=== PATIENT | female | born 1955 | race Caucasian/White ===

== ENCOUNTER 2017-10-11 11:34 | Day surgery (SDC) | payer SELFPAY ==
[~2017-10-11 11:34] MED LIST: NS 0.9% VIAL 10 ML ONE; TRYPAN BLUE 0.5 ML SYR OPTH ONE
[2017-10-11] MEDS ORDERED: PHENYLEPHRINE 10% OPTH 5ML OPTH ONE ×2 (12:00→12:05)
[2017-10-11] MEDS ORDERED: CYCLOPENTOLATE 1% OPTH 2 ML OPTH ONE ×2 (12:00→12:05)
[2017-10-11] MEDS ORDERED: CYCLOPENTOLATE 1% OPTH 2 ML ONE (12:01)
[2017-10-11] MEDS ORDERED: LIDOCAINE 2% MPF 5 ML VIAL ONE (12:01)
[2017-10-11] MEDS ORDERED: BUPIVACAINE 0.25% PF 10 ML VIAL ONE (12:01)
[2017-10-11] MEDS ORDERED: NA CHLORIDE 0.9% 500 ML ONE (12:01)
[2017-10-11] MEDS ORDERED: TETRACAINE HCL 0.5% 2ML OPTH ONE (12:01)
[2017-10-11] MEDS ORDERED: PHENYLEPHRINE 10% OPTH 5ML ONE (12:02)
[2017-10-11] MEDS ORDERED: PROPOFOL 200 MG/20 ML VIAL IV ONE (13:13)
[2017-10-11] MEDS: BALANCED SALT IRRIG PLAIN 500 ML BTL IRR ONE ×2 (13:16→13:21)
[2017-10-11] MEDS: EPINEPHRINE/PF 1 MG/ML AMP ONE ×2 (13:16→13:21)
[2017-10-11] MEDS: DUOVISC 1 KIT OPTH ONE ×2 (13:17→13:21)
[2017-10-11] MEDS: MOXIFLOXACIN HCL 10 DROPS/ML **OR USE OPTH ONE ×2 (13:18→13:21)
[2017-10-11] MEDS ORDERED: DIPHENHYDRAMINE 50 MG/ML VIAL ONE (13:51)
--- NOTE | 2017-10-11 14:02 | P.BOP ---
Preoperative diagnosis: Mature cataract OS Postoperative diagnosis: Same Primary procedure: Phacoemulsification with IOL OS - complex with use of trypan blue Estimated blood loss: None Anesthesia: Local (Subtenon's infusion with anesthesia for cataract surgery) Complications: None Implants: ZCB00 +16.0 Transferred to: Other (Day surgery) Condition: Good
--- NOTE | 2017-10-11 23:53 | OP ---
Date of Procedure: 10/11/2017 Surgeon: Page Crawford MD Anesthesiologist: 1. Fannie Gibson CRNA. 2. Mars Marx M.D. Preoperative Diagnosis: Mature cataract OS (left eye). Operation Performed: Phacoemulsification with intraocular lens implant left eye complex with use of trypan blue. Anesthesia: Per cataract surgery. Complications: None. Description Of The Procedure: The patient was prepped with Betadine in day surgery. A drape was placed over the left eye. A lid speculum was placed in the left eye. A conjunctival incision was made in the inferior nasal quadrant with Joceline scissors. A 1:1 mixture of 2% Xylocaine and 0.25% bupivacaine was placed around the globe. Approximately 5 mL were used. A Honan balloon was placed on the eye for approximately 5 minutes. The patient was then transferred to the operative room where they were prepped and draped in the usual sterile fashion for ophthalmic surgery. A lid speculum was placed in the left eye. There was poor red reflex and a decision was made to use trypan blue. Paracentesis sites were made superiorly and inferiorly in the limbal cornea. Trypan blue was placed in the anterior chamber. After thirty seconds, balanced salt solution was used to rinse out the trypan blue from the eye. Viscoat was placed in the eye. The temporal conjunctiva was cut at the limbus with Joceline scissors. A crescent blade was used to create a tunnel incision in the temporal cornea. A keratome was used to enter the anterior chamber. Provisc was placed in the eye. A 360 degree capsulotomy was performed with a cystitome. The lens was hydrated with balanced salt solution and moved freely. The lens was removed in a stop and chop fashion. A 24.21 CDE was required. Irrigation and aspiration were used to remove residual cortex. Provisc was placed in the eye and a ZCB00 +16.0 diopter lens was placed in the capsular bag without complications. Irrigation and aspiration were used to remove residual Viscoat. The paracentesis sites were hydrated with balanced salt solution. The wound and paracentesis sites were inspected and found to be watertight. Intracameral Vigamox 0.07 cc was injected at the end of the procedure. The eye was irrigated with balanced salt solution. The eye was patched with a soft cotton patch and Varner metal shield and the patient was returned to day surgery in good condition. Discharge Instructions: Ms. Galaviz is discharged to home in good condition and is to follow up with Dr. Crawford in the morning. PRATIBHA/MATILDE Voice ID: [id number] Report ID: [id number] MTDD
== END 2017-10-11 14:36 | disposition home or self-care (01) ==
LOC: OR 11:34
PROVIDERS: ATTEND Ophthalmology Retina Specialist
PROC: 08RK3JZ Replacement of Left Lens with Synthetic Substitute, Percutaneous Approach (ICD-10-PCS; principal; 2017-10-11 12:15)
DX: H25.12 Age-related nuclear cataract, left eye (principal); H25.89 Other age-related cataract; I10 Essential (primary) hypertension; F17.200 Nicotine dependence, unspecified, uncomplicated; Z83.518 Family history of other specified eye disorder
CPT/HCPCS: J0171

== ENCOUNTER 2017-11-15 08:04 | Day surgery (SDC) | payer SELFPAY ==
[2017-11-15] MEDS ORDERED: CYCLOPENTOLATE 1% OPTH 2 ML ONE (08:07)
[2017-11-15] MEDS ORDERED: PHENYLEPHRINE 10% OPTH 5ML ONE (08:07)
[2017-11-15] MEDS ORDERED: NA CHLORIDE 0.9% 500 ML ONE (08:07)
[2017-11-15] MEDS ORDERED: PHENYLEPHRINE 10% OPTH 5ML OPTH ONE ×2 (08:23→08:28)
[2017-11-15] MEDS ORDERED: CYCLOPENTOLATE 1% OPTH 2 ML OPTH ONE ×2 (08:23→08:28)
[2017-11-15] MEDS ORDERED: NS 0.9% VIAL 10 ML ONE (09:07)
[2017-11-15] MEDS ORDERED: TRYPAN BLUE 0.5 ML SYR OPTH ONE (09:08)
[2017-11-15] MEDS ORDERED: MOXIFLOXACIN HCL 10 DROPS/ML **OR USE OPTH ONE (09:08)
[2017-11-15] MEDS ORDERED: BALANCED SALT IRRIG PLAIN 500 ML BTL IRR ONE (09:08)
[2017-11-15] MEDS ORDERED: EPINEPHRINE/PF 1 MG/ML AMP ONE (09:08)
[2017-11-15] MEDS ORDERED: DUOVISC 1 KIT OPTH ONE (09:08)
[2017-11-15] MEDS: BUPIVACAINE 0.25% PF 10 ML VIAL ONE ×2 (09:24→10:00)
[2017-11-15] MEDS: TETRACAINE HCL 0.5% 2ML OPTH ONE ×2 (09:24→10:00)
[2017-11-15] MEDS: LIDOCAINE 2% MPF 5 ML VIAL ONE ×2 (09:25→10:00)
[2017-11-15] MEDS ORDERED: PROPOFOL 200 MG/20 ML VIAL IV ONE (09:31)
[2017-11-15] MEDS ORDERED: LIDOCAINE 2% MPF 5 ML VIAL ONE (09:31)
--- NOTE | 2017-11-15 10:50 | P.BOP ---
Preoperative diagnosis: Nuclear sclerotic, cortical and posterior sub-capsular cataract OD Postoperative diagnosis: Same Primary procedure: Phacoemulsification with IOL OD Estimated blood loss: None Anesthesia: Local (Subtenon's infusion with anesthesia for cataract surgery) Complications: None Implants: ZCB00 +17.0 Transferred to: Other (Day surgery) Condition: Good
--- NOTE | 2017-11-15 20:58 | OP ---
Date of Procedure: 11/15/2017 Surgeon: Page Crawford MD Anesthesiologist: 1. Ja Weber CRNA. 2. Kofi Short MD. Preoperative Diagnosis: Nuclear sclerotic cataract, cortical cataract, and posterior subcapsular cat aract, OD (right eye). Operation Performed: Phacoemulsification with intraocular lens implant, OD (right eye). Anesthesia: Per cataract surgery. Complications: None. Description Of Procedure: In day surgery, the patient was prepped with Betadine and draped. A conju nctival incision was made in the inferior nasal quadrant with Joceline scissors. A sub-Tenon block c onsisting of a 1:1 mixture of 2% Xylocaine and 0.25% bupivacaine was placed through the conjunctival incision with a blunt cannula. A Honan balloon was placed over the eye and the patient was transferr ed to the operating room. In the operating room the patient was prepped and draped in the usual sterile fashion for ophthalmic surgery. A lid speculum was placed in the right eye. Two paracentesis sites were made superiorly an d inferiorly in the limbal cornea. Viscoat was placed in the anterior chamber and a crescent blade w as used to make a corneal groove and tunnel, and a keratome was used to enter the anterior chamber. Provisc was placed in the anterior chamber and a 360 degree capsulotomy was performed with a cystitom e. The lens was hydrodissected with BSS and rotated freely. The lens was removed with a stop and ch op technique. A 27.42 phaco CDE was used to remove the lens. Residual cortex was removed with the i rrigation and aspiration. Provisc was placed in the capsular bag. A ZCB00 +17.[address] aced in the capsular bag without complications. Irrigation and aspiration were used to remove residu al viscoelastic. The paracentesis sites were hydrated with BSS. The wound and paracentesis sites we re inspected and found to be watertight. Vigamox 0.07 cc was placed intracamerally at the end of the procedure. The eye was irrigated with balanced salt solution. The eye was patched with a soft cott on patch and Varner metal shield. The patient was returned to day surgery in good condition. Discharge Instructions: Ms. Galaviz is discharged to home in good condition and is to follow up with Dr. Crawford in the morning. PRATIBHA/MATILDE Voice ID: [id number] Report ID: [id number]
== END 2017-11-15 11:22 | disposition home or self-care (01) ==
LOC: OR 08:04
PROVIDERS: ATTEND Ophthalmology Retina Specialist
PROC: 08RJ3JZ Replacement of Right Lens with Synthetic Substitute, Percutaneous Approach (ICD-10-PCS; principal; 2017-11-15 09:50)
DX: H25.11 Age-related nuclear cataract, right eye (principal); H25.041 Posterior subcapsular polar age-related cataract, right eye; H25.011 Cortical age-related cataract, right eye; I10 Essential (primary) hypertension; F17.200 Nicotine dependence, unspecified, uncomplicated; Z83.518 Family history of other specified eye disorder
CPT/HCPCS: J0171

== ENCOUNTER 2023-06-06 18:58 | Emergency (ER) | payer OTHER ==
--- OUTSIDE RECORDS SUMMARY | 2023-06-06 19:03 | XMS REPORT | Continuity of Care Document ---
:1955 Author Organization [facility] t Address [address] [facility] [address] [place] [address] Care Team Providers Name Role Phone Ricardo Martin DO Primary Care Physician Doctor Unassigned, [place] Attending Clinician Unavailable Ashley ALTMAN, Jo Benítez Attending Clinician Unavailable Leonid Hernandez MD Attending Clinician Hue Stout MD Attending Clinician HUE STOUT Attending Clinician Unavailable Girish BOLANOS, Hue Admitting Clinician HUE STOUT Admitting Clinician Unavailable Payers Payer Name Policy Type Policy Number Effective Date Expiration Date S ource Problems Condition Condition Condition Status Onset Resolution Last Treating Co mments Source Name Details Category Date Date Treatment Clinician Date Hypotensio Hypotensio Disease Active U nivers n, n, 8-14 ity of [place] Medical hypotensio hypotensio Br anch n type n type Allergies, Adverse Reactions, Alerts Allergy Allergy Status Severity Reaction(s) Onset Inactive Treating Comm ents Source Name Type Date Date Clinician NO KNOWN Drug Active Univers ALLERGIE Class ity of S [facility] Social History Social Habit Start Date Stop Date Quantity Comments Source History of tobacco Cigarette Smoker [facility] Exposure to 2022-02-19 2022-03-01 Not sure [facility] SARS-CoV-2 (event) 00:00:00 15:10:00 [facility] Cigarettes smoked 2022-03-01 2022-03-01 [facility] ity of current (pack per 00:00:00 00:00:00 [place] ) - Reported Branch Cigarette 2022-03-01 2022-03-01 University of pack-years 00:00:00 00:00:00 [facility] Tobacco use and 2022-03-01 2022-03-01 Smokeless Universit y of exposure 00:00:00 00:00:00 tobacco non-user [facility] intake 2022-03-01 2022-03-01 Ex-drinker [facility] 00:00:00 00:00:00 (finding) [facility] Sex Ass[birth year] [facility] y of 00:00:00 00:00:00 [facility] Smoking Status Start Date Stop Date Source Smokes tobacco daily 2022-03-01 00:00:00 Univers ity of [facility] Medications Ordered Filled Start Stop Current Ordering Indication Dosage Frequency Signature Comments Components Source Medication Medication Date Date Medication? Clinician (SIG) Name Name cholecalcif 2021- No [id number] 1000U Take 1 Univers [place], 03-04 tablet by ity of vitamin D3, 00:00: 04:59 mouth in [place] 25 mcg 00 :00 the Medical (1,000 morning Branch unit) for 10 tablet days. zinc 2021- No [id number] 50mg Take 1 Unive rs sulfate 50 03-04 capsule by it y of mg zinc 00:00: 04:59 mouth in [place] (220 mg) 00 :00 the Medical capsule morning [place] for 10 days. cholecalcif 2021- No [id number] 1000U Take 1 Univers vianney, 03-04 tablet by ity of vitamin D3, 00:00: 04:59 mouth [place] 25 mcg 00 :00 the Medical (1,000 morning Branch unit) for 10 tablet days. zinc 2021- No [id number] 50mg Take 1 Unive rs sulfate 50 03-04 capsule by it y of mg zinc 00:00: 04:59 mouth in [place] (220 mg) 00 :00 the Medical capsule morning Branch for 10 days. lisinopriL 2021- No 10mg Take 10 mg Univers 10 mg 03-03 by mouth ity of tablet 10:25: 00:00 in the [place] 17 :00 morning. Medical Branch acetaminoph 2022- No [id number] 650mg Take 2 Univers en 325 mg 03-03-17 tablets by ity of tablet 00:00: 04:59 mouth [place] 00 :00 every 6 Medical (six) Branch hours as needed for Pain (scale 1-3) or Temp > 38.5 C. acetaminoph 2022- No [id number] 650mg Take 2 Univers en 325 mg 03-0317 tablets by ity of tablet 00:00: 04:59 mouth [place] 00 :00 every 6 Medical (six) Branch hours as needed for Pain (scale 1-3) or Temp > 38.5 C. acetaminoph 2022- No [id number] 650mg Take 2 Univers en 325 mg 03-03 tablets by ity of tablet 00:00: 04:59 mouth [place] 00 :00 every 6 Medical (six) Branch hours as needed for Pain (scale 1-3) or Temp > 38.5 C. ascorbic 2021- No [id number] 500mg Take 1 Univers acid, 03-03 tablet by ity of vitamin C, 00:00: 04:59 [place] 500 mg 00 :00 the Medical tablet morning Branch and 1 tablet in the evening. Do all this for 10 days. ascorbic 2021- No [id number] 500mg Take 1 Univers acid, 03-03 tablet by ity of vitamin C, 00:00: 04:59 mouth [place] 500 mg 00 :00 the Medical tablet morning Branch and 1 tablet in the evening. Do all this for 10 days. magnesium 2021- No 2g 2 g, IV Univ ers sulfate in 03-02 Piggyback, it y of water 2 14:15: 15:31 Administer [place] as gram/50 mL 00 :06 over 60 Medica l (4 %) Minutes, Branch infusion 2 ONCE, 1 g dose, On Wed03/02/22 at 0915, Routine cholecalcif 2021-0 Yes 1000U 1,000 [facility] ers vianney 8-15 Units, ity of (vitamin 14:00: Oral, [place] D3) tablet 00 DAILY, Medical 1,000 Units First dose Br anch on Wed03/02/22 at 0900, Until Discontinu ed, Routine zinc 2021-0 Yes 50mg 50 mg, Univers sulfate 8-15 Oral, ity of (ORAZINC) 14:00: DAILY, [place] capsule 50 00 First dose Med ical mg on Wed Branch 03/02/22 at 0900, Until Discontinu ed, Routine NaCl 0.45% 2021-0 2021- No 1000mL at 75 Uni vers (1/2NS) IV 03-02-16 mL/hr, ity of infusion 12:45: 14:10 1,000 mL, Tom [place] 1,000 mL 00 :09 IV Medical Infusion, Branch CONTINUOUS , Starting on Wed03/02/22 at 0745, Until Wed03/03/22 at 0910, Routine NaCl 0.9% 0 2021- No 500mL at 999 [facility] ers (NS) bolus 03-02-15 mL/hr, 500 it y of infusion 05:30: 04:43 mL, IV [place] 500 mL 00 :00 Piggyback, Medical ONCE, 1 Branch dose, On Wed03/02/22 at 0030, STAT heparin 2021-0 Yes 5000U 5,000 Univers (porcine) 8-15 Units, ity of injection 03:00: [place] 5,000 Units 00 us, Q8H, Medi martina First dose Branch on 03/01/22 at 2200, Until Discontinu ed, Routine ascorbic 2021-0 Yes 500mg 500 mg, Unive rs acid 8-15 Oral, BID, ity of (vitamin C) 01:00: First dose [place] (VITAMIN C) 00 on Sun Medica l tablet 500 03/01/22 at [facility] mg 2000, Until Discontinu ed, Routine cefTRIAXone 2021-0 2021- No 1000mg 1,000 mg, Univers (ROCEPHIN) 03-02-16 IV ity of 1,000 mg in 00:45: 16:11 Piggyback, [place] NaCl 0.9% 00 :05 Q24H ABX, Medic al (NS) 50 mL 7 doses, Branc h MINI-BAG First dose on [place] 03/01/22 at 1945, Last dose on [facility] 03/07/22 at 1945, Administer over 30 Minutes, 50 mL
Reas on for Anti-Infec tive: Documented Infection< br>Documen eliane Infection Site: Urine
D uration of Therapy: 7 days sodium 2021- No 150meq IV Univers bicarbonate 03-02 Infusion, it y of 150 mEq in 00:45: 11:41 at 100 [place] D5W 1,000 00 :32 mL/hr, 150 Medi martina mL IV mEq, Branch infusion CONTINUOUS , Starting on [place] 03/01/22 at 1945, Until 03/02/22 at 0641, Routine sodium No 100meq 100 mEq, Univ ers bicarbonate 03-02 Slow IV ity of 8.4 % (1 00:30: 01:16 Push, [place] mEq/mL) 00 :00 ONCE, 1 Medical injection dose, On Branch 100 mEq [place] 03/01/22 at 1930, JANET ondansetron Yes 4mg 4 mg, Slow Univers (ZOFRAN 03-01 IV Push, ity of (PF)) 23:40: Q6HPRNEast [place], [place] injection 4 59 Starting Medi martina mg on [facility] 03/01/22 at 1840, Until Discontinu ed, Routine, Nausea and Vomiting (N/V) acetaminoph Yes 650mg 650 mg, Un sierra en 03-01 Oral, ity of (TYLENOL) 23:40: Q6HPRN, [place] tablet 650 45 Starting Medic al mg on [place] Branch 03/01/22 at 1840, Until Discontinu ed, Routine, Pain (scale 1-3), Temp > 38.5 C NaCl 0.9% 2021- No 1000mL at 999 Uni vers (NS) bolus 03-01 08-14 mL/hr, ity of infusion 22:15: 22:29 1,000 mL, [place] 1,000 mL 00 :00 IV Medical Infusion, Branch ONCE, 1 dose, On [place] 03/01/22 at 1715, STAT NaCl 0.9% 1000mL at 999 Uni vers (NS) IV 03-01 08-14 mL/hr, IV ity of infusion 20:27: 21:11 Infusion, [place] 1,000 mL 00 :00 ONCE, 1 Medical dose, On Branch 03/01/22 at 1530, Routine Vital Signs Vital Name Observation Time Observation Value Comments Source Systolic blood 2022-03-03 13:00:00 130 mm[Hg] Univer sity of pressure [facility] Diastolic blood 2022-03-03 13:00:00 73 mm[Hg] Unive rsity of [facility] Heart rate 2022-03-03 13:00:00 61 /min [facility] Body temperature 2022-03-03 13:00:00 36.44 Annabel [facility] rate 2022-03-03 13:00:00 26 /min [facility] Oxygen saturation in 2022-03-03 13:00:00 93 /min [facility] Arterial blood by [place] [facility] Pulse oximetry [place] Body weight 2022-03-03 08:55:00 68.493 kg [facility] BMI 2022-03-03 08:55:00 25.91 kg/m2 [facility] Body height 2022-03-02 03:11:00 162.6 cm [facility] Procedures Procedure Date / Time Performing Clinician Source Performed AUTHORIZATION FOR RELEASE 2022-04-08 05:01:00 Doctor Unassigned, [facility] [place] Medical [facility] MAGNESIUM 2022-03-03 10:44:00 shakira [facility]ly [facility] BASIC METABOLIC PANEL (NA, 2022-03-03 10:44:00 Hue Stout [facility] K, CL, CO2, GLUCOSE, BUN, Medica l Branch CREATININE, CA) MRSA / MSSA SCREEN BY PCR, 2022-03-02 14:05:00 Hue Stout [facility] NARES [facility] US RETROPERITONEAL 2022-03-02 13:53:57 [facility] Branch MAGNESIUM 2022-03-02 09:22:00 [place], Hue [facility] BASIC METABOLIC PANEL (NA, 2022-03-02 09:22:00 Hue Stout [facility] K, CL, CO2, GLUCOSE, BUN, Medica l Branch CREATININE, CA) CBC WITH DIFF 2022-03-02 09:22:00 Hue Stout [facility] ACUTE CARE VENOUS BLOOD 2022-03-02 09:21:00 Ilia Bowers [facility] CRITICAL CARE 2022-03-01 23:48:55 Leonid Hernandez [facility] URINALYSIS 2022-03-01 23:13:00 Leonid Hernandez [facility] URINE CULTURE 2022-03-01 23:13:00 Leonid Hernandez [facility] URINE DRUG (IMMUNOASSAY) - 2022-03-01 23:13:00 Leonid Hernandez [facility] COMPREHENS[facility]EN [facility] W[facility] REFLEX BASIC METABOLIC PANEL (NA, 2022-03-01 22:33:00 Leonid Hernandez [facility] K, CL, CO2, GLUCOSE, BUN, Medica l Branch CREATININE, CA) ACUTE CARE VENOUS BLOOD 2022-03-01 22:29:00 Leonid Hernandez [facility] CT ABDOMEN PELVIS WO 2022-03-01 22:05:00 Leonid Hernandez [facility] HB ECG ROUTINE & RHYTHM 2022-03-01 20:44:38 Leonid Hernandez [facility] AC PANEL 21 + LACTIC ACID 2022-03-01 20:23:00 [facility] 2022-03-01 20:22:00 Leonid Hernandez [facility] LIPASE 2022-03-01 20:22:00 Leonid Hernandez [facility] TROPONIN I 2022-03-01 20:22:00 Leonid Hernandez [facility] COMP. METABOLIC PANEL 2022-03-01 20:22:00 Leonid Hernandez [facility] ([id number]) Medical [place] CBC WITH DIFF 2022-03-01 20:22:00 Leonid Hernandez [facility] [place] [facility] PROTHROMBIN TIME / INR 2022-03-01 20:22:00 Leonid Hernandez [facility] ACTIVATED PARTIAL THRMPLAS 2022-03-01 20:22:00 [facility] 2022-03-01 20:22:00 [facility] COVID-19 (ID NOW RAPID 2022-03-01 20:22:00 Leonid Hernandez [facility] TESTING) Medical Branch LAB ONLY COVID 2022-03-01 20:22:00 Leonid Hernandez [place] o f [place] INTERPRETATION [facility] NOTICE OF PRIVACY 2022-03-01 19:55:51 Doctor Eran, [facility] PRACTICES [place] Medical [facility] CONSENT/REFUSAL FOR 2022-03-01 19:54:51 Doctor Eran, [facility] DIAGNOSIS AND TREATMENT [place] Medical [place] Encounters Start End Encounter Admission Attending Care Care Encounter Source Date/Time Date/Time Type Type Clinicians Facility Department ID 2022-04-08 2022-04-08 Orders Doctor HANY [id number] Univers 00:00:00 00:00:00 Only Unassigned, TIMOTHY 350.1.13.10 ity of [place] [facility] 4.2.7.2.686 Tom as [id number] [facility] 009 Branch 2022-03-04 2022-03-04 Transition [place] quachJuan Carlos [id number] Univers 00:00:00 00:00:00 of Care Jo MUHAMMAD 350.1.13.10 i ty of [place]2.[place] [id number] [facility] 403 Branch 2022-03-01 2022-03-03 Hospital Leonid Hernandez [facility] [id number] Univers 15:14:00 12:00:00 Encounter Hue Stout 350.1.13.10 ity of [place]2.686 [place] C[place] [id number] [facility] 080 Branch 2022-03-01 2022-03-03 Inpatient X [facility] [id number] Univers 15:14:00 12:00:00 HUE alcazar [facility] Results Test Description Test Time Test Comments Results Result Comments Source BASIC METABOLIC PANEL (NA, K, CL, CO2, GLUCOSE, BUN, 2022-02 10:44:40 CREATININE, CA) Test Item Value Reference Range Interpretation Comme nts NA (test code = 3146990768) 141 mmol/L 135-145 K (test code = 9456182033) 4.2 mmol/L 3.5-5 CL (test code = 8916249864) 107 mmol/L 98-108 CO2 TOTAL (test code = 0919463079) 29 mmol/L 23-31 AGAP (test code = 1658136358) 2-16 BUN (test code = 2083652723) 38 mg/dL 7-23 H GLUCOSE (test code = 5302417376) 93 mg/dL 70-110 CREATININE (test code = 1.02 mg/dL 0.5-1.04 7263400119) CALCIUM (test code = 9687843542) 7.8 mg/dL 8.6-10.6 L eGFR (test code = 6499248292) mL/min/1.73m2 SIMRAN (test code = SIMRAN) Association of Glomerular Filtration Rate (GFR) and Staging of Kidney Disease* + +-------- + ------+| GFR (mL/min/1.73 m2) ?| With Kidney Damage ?| ?Without Kidney Damage+ +-- + +| ?>90 ?| ?Stage one ?| ? Normal ?+ +------- + -------+| ?60-89 ?| ?Stage two ?| ? Decreased GFR ? + +-------- + ------+| ?30-59 ?| ?Stage three ?| ? Stage three ? + +-------- + ------+| ?15-29 ?| ?Stage four ? | ? Stage four ?+ +------- + -------+| ?<15 (or dialysis) ? ?| ?Stage five ? | ? Stage five ?+ +------- + -------+ *Each stage assumes the associated GFR level has been in effect for at least three months. ?Stages 1 to 5, with or without kidney disease, indicate chronic kidney disease. Notes: Determination of stages one and two (with eGFR >59mL/min/1.73 m2) requires estimation of kidney damage for at least three months as defined by structural or functional abnormalities of the kidney, manifested by either:Pathological abnormalities or Markers of kidney damage (including abnormalities in the composition of the blood or urine or abnormalities in imaging tests). Lab Interpretation (test code = Abnormal 83199-3) [facility] [place] [facility]2022-08-16 10:44:35 Test Item Value Reference Range Interpretation Comments MAGNESIUM (test code = 1687616083) 2.0 mg/dL 1.7-2.4 Lab Interpretation (test code = Normal 82972-5) [facility] [place] [facility] (NA, K, CL, CO2, GLUCOSE, BUN, CREATININE, CA)2022-03-01 23:07:50 Test Item Value Reference Range Interpretation Comments NA (test code = 139 mmol/L 135-145 1268805806) K (test code = 5.5 mmol/L 3.5-5 H 5877344094) CL (test code = 116 mmol/L 98-108 H 1108250660) CO2 TOTAL (test code = 14 mmol/L 23-31 L 3973418451) AGAP (test code = 2-16 3544141840) BUN (test code = 85 mg/dL 7-23 H 7325691362) GLUCOSE (test code = 95 mg/dL 70-110 2113504540) CREATININE (test code = 3.55 mg/dL 0.5-1.04 H 1728104525) CALCIUM (test code = 7.3 mg/dL 8.6-10.6 L 3934491781) eGFR (test code = mL/min/1.73m2 3140388126) SIMRAN (test code = SIMRAN) Association of Glomerular Filtration Rate (GFR) and Staging of Kidney Disease* + --+ --+ ------+| GFR (mL/min/1.73 m2) ?| With Kidney Damage ?| ?Without Kidney Damage+ --------+ --------+ +| ?>90 ?| ?Stage one ?| ? Normal ?+ ---+ ---+ -------+| ?60-89 ?| ?Stage two ?| ? Decreased GFR ? + --+ --+ ------+| ?30-59 ?| ?Stage three ?| ? Stage three ? + --+ --+ ------+| ?15-29 ?| ?Stage four ? | ? Stage four ?+ ---+ ---+ -------+| ?<15 (or dialysis) ? ?| ?Stage five ? | ? Stage five ?+ ---+ ---+ -------+ *Each stage assumes the associated GFR level has been in effect for at least three months. ?Stages 1 to 5, with or without kidney disease, indicate chronic kidney disease. Notes: Determination of stages one and two (with eGFR >59mL/min/1.73 m2) requires estimation of kidney damage for at least three months as defined by structural or functional abnormalities of the kidney, manifested by either:Pathological abnormalities or Markers of kidney damage (including abnormalities in the composition of the blood or urine or abnormalities in imaging tests). Lab Interpretation Abnormal (test code = 07690-6) [facility] [place] [facility] CampusTROPONIN [id number] 21:23:46 Test Item Value Reference Interpretation Comments Range TROPONIN I (test 0.010 ng/mL See_Comment [Automated code = 8684150087) message] The system which generated this result transmitted reference range : <=0.034. The reference range was not used to interpret this result as normal/abnormal . SIMRAN (test code = Reference (Normal) SIMRAN) Range (defined by the 99th percentile reference limit): <= 0.034 ng/mL Note: Cardiac troponin begins to rise 3-4 hours after the onset of ischemia. Repeat in 4-6 hours if the sample was drawn within 3-4 hours of the onset of the symptom and found normal. Diagnosis of myocardial injury is made with acute changes in cTn concentrations with at least one serial sample above the 99th percentile upper reference limit (URL), taken together with the patient's clinical presentation. Biotin has been reported to cause a negative bias, interpret results relative to patient's use of biotin. Lab Interpretation Normal (test code = 33336-3) [facility] [place] [facility] CampusACTIVATED PARTIAL THRMPLAS [id number] 21:21:45 Test Item Value Reference Range Interpretation Comments APTT Patient (test See_Comment [Automat ed code = 3173-2) message] The system which generated this result transmitted reference range : 23 - 38 Seconds . The reference range was not used to interpr et this result as normal/abnormal . SIMRAN (test code = SIMRAN) The [facility] patient population mean normal value for aPTT is 30 seconds. Lab Interpretation Normal (test code = 07032-8) [facility] [place] [facility] CampusN-TERMINAL [id number] 21:20:27 Test Item Value Reference Range Interpretation Comments NT-proBNP (test code 274 pg/mL See_Comment H [Autom ated = 8495401101) message] The system which generated this result transmitted reference range : <=125. The reference range was not used to interpret this result as normal/abnormal . SIMRAN (test code = SIMRAN) Biotin has been reported to cause a negative bias, interpret results relative to patient's use of biotin. Lab Interpretation Abnormal (test code = 78614-2) [facility] [place] [facility] CampusPROTHROMBIN TIME / [id number] 21:19:27 Test Item Value Reference Range Interpretation Comments PROTIME PATIENT (test See_Comment [Auto mated message] code = 5964-2) The system wh ich generated this result transmitted ref erence range: 12.0 - 1 4.7 Seconds. The re ference range was not u sed to interpret this result as normal/abnor mal. INR (test code = 6301-6) Nor mal INR <1.1; Warfarin Therap eutic range 2.0 to 3. 0 or 2.5 to 3.5, dep ending upon the indica tions. Lab Interpretation (test Normal code = 33239-7) [facility] [place] [facility] CampusCOMP. METABOLIC PANEL ([id number])2022-03-01 21:11:24 Test Item Value Reference Range Interpretation Comments NA (test code = 139 mmol/L 135-145 1866346225) K (test code = 5.0 mmol/L 3.5-5 1128047424) CL (test code = 109 mmol/L 98-108 H 3256670883) CO2 TOTAL (test code = 15 mmol/L 23-31 L 8885924356) AGAP (test code = 2-16 2466865520) BUN (test code = 90 mg/dL 7-23 H 9814653950) GLUCOSE (test code = 123 mg/dL 70-110 H 4881552514) CREATININE (test code = 4.50 mg/dL 0.5-1.04 H 7487760265) TOTAL BILI (test code = 0.5 mg/dL 0.1-1.9 3936372777) CALCIUM (test code = 8.6 mg/dL 8.6-10.6 5461262391) T PROTEIN (test code = 8.0 g/dL 6.3-8.2 8428494730) ALBUMIN (test code = 4.1 g/dL 3.5-5 6915354140) ALK PHOS (test code = 79 U/L 34-122 5402569955) ALTv (test code = 42 U/L 5-35 H 1742-6) AST(SGOT) (test code = 35 U/L 13-40 7617824279) eGFR (test code = mL/min/1.73m2 4938962666) SIMRAN (test code = SIMRAN) Association of Glomerular Filtration Rate (GFR) and Staging of Kidney Disease* + --+ --+ ------+| GFR (mL/min/1.73 m2) ?| With Kidney Damage ?| ?Without Kidney Damage+ --------+ --------+ +| ?>90 ?| ?Stage one ?| ? Normal ?+ ---+ ---+ -------+| ?60-89 ?| ?Stage two ?| ? Decreased GFR ? + --+ --+ ------+| ?30-59 ?| ?Stage three ?| ? Stage three ? + --+ --+ ------+| ?15-29 ?| ?Stage four ? | ? Stage four ?+ ---+ ---+ -------+| ?<15 (or dialysis) ? ?| ?Stage five ? | ? Stage five ?+ ---+ ---+ -------+ *Each stage assumes the associated GFR level has been in effect for at least three months. ?Stages 1 to 5, with or without kidney disease, indicate chronic kidney disease. Notes: Determination of stages one and two (with eGFR >59mL/min/1.73 m2) requires estimation of kidney damage for at least three months as defined by structural or functional abnormalities of the kidney, manifested by either:Pathological abnormalities or Markers of kidney damage (including abnormalities in the composition of the blood or urine or abnormalities in imaging tests). Lab Interpretation Abnormal (test code = 67657-8) [facility] [place] [facility] CampusLIPASE2022-08-14 21:11:24 Test Item Value Reference Range Interpretation Comments LIPASE (test code = 8864375368) 369 U/L 0-220 H Lab Interpretation (test code = Abnormal 19866-9) [facility] [place] [facility] CampusCB WITH [id number] 21:05:43 Test Item Value Reference Range Interpretation Comments WBC (test code = See_Comment [Automated 6690-2) message] The sy stem which generated this result transmitted reference range : 4.30 - 11.10 10*3/?L. The reference range was not used to interpret this result as normal/abnormal . RBC (test code = See_Comment [Automated 789-8) message] The sy stem which generated this result transmitted reference range : 3.93 - 5.25 10*6/?L. The reference range was not used to interpret this result as normal/abnormal . HGB (test code = 14.6 g/dL 11.6-15 718-7) HCT (test code = 44.1 % 35.7-45.2 4544-3) MCV (test code = 88.4 fL 80.6-95.5 787-2) MCH (test code = 29.3 pg 25.9-32.8 785-6) MCHC (test code = 33.1 g/dL 31.6-35.1 786-4) RDW-SD (test code = 46.5 fL 39-49.9 11348-7) RDW-CV (test code = 14.6 % 12-15.5 788-0) PLT (test code = See_Comment [Automated 777-3) message] The sy stem which generated this result transmitted reference range : 166 - 358 10*3/ ?L. The reference r meredith was not used to interpret this result as normal/abnormal . MPV (test code = 12.7 fL 9.5-12.9 81393-7) NRBC/100 WBC (test See_Comment [Automat ed code = 7395524566) message] The system which generated this result transmitted reference range : 0.0 - 10.0 /100 WBCs. The refer ence range was not u sed to interpret th is result as normal/abnormal . NRBC x10^3 (test code See_Comment [Auto mated = 6714437710) message] The s ystem which generated this result transmitted reference range : 10*3/?L. The reference range was not used to interpret this result as normal/abnormal . GRAN MAT (NEUT) % 68.5 % (test code = 770-8) IMM GRAN % (test code 0.70 % = 4884442090) LYMPH % (test code = 23.7 % 736-9) MONO % (test code = 6.6 % 5905-5) EOS % (test code = 0.3 % 713-8) BASO % (test code = 0.2 % 706-2) GRAN MAT x10^3(ANC) 7.60 10*3/uL 1.88-7.09 H (test code = 6147850230) IMM GRAN x10^3 (test 0.08 10*3/uL 0-0.06 H code = 6385196989) LYMPH x10^3 (test code 2.63 10*3/uL 1.32-3.29 = 731-0) MONO x10^3 (test code 0.73 10*3/uL 0.33-0.92 = 742-7) EOS x10^3 (test code = 0.03 10*3/uL 0.03-0.39 711-2) BASO x10^3 (test code 0.01-0.07 = 704-7) Lab Interpretation Abnormal (test code = 16532-2) [facility]"
[2023-06-06] MEDS ORDERED: TDAP (DIPHTH,PERTUSS(ACELL),TET VAC) 0.5 ML VIAL IMVAC ONE (19:35)
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
[2023-06-06 21:53] VITALS: TEMP 98.3
[2023-06-06 21:54] VITALS: BP 165/98; O2SAT 98
--- NOTE | 2023-06-09 17:00 | EKG ---
Test Date: 2023-06-06 Test Time: 19:17:19 Application Support Analyst: ALEX MEASUREMENT RESULTS: Intervals: Rate: 105 OR: 180 QRSD: 74 QT: 362 QTc: 478 [place]: P: 69 OR: 180 QRS: -11 T: 67 INTERPRETIVE STATEMENTS: Sinus tachycardia Otherwise normal ECG No previous ECG available for comparison Electronically Signed On 06-09-23 16:53:27 SENIOR MANAGER [employer]ATIVE SERVICES by Ross Sampson
== END 2023-06-06 21:41 | disposition home or self-care (01) ==
LOC: ER 18:58
DX: M25.512 Pain in left shoulder (principal); V49.49XA Driver injured in collision with other motor vehicles in traffic accident, initial encounter; Y92.410 Unspecified street and highway as the place of occurrence of the external cause; M79.10 Myalgia, unspecified site; I10 Essential (primary) hypertension; F17.210 Nicotine dependence, cigarettes, uncomplicated
CPT/HCPCS: 71045; 93005; 96372; 99285